=== PATIENT | male | born 1965 | race Caucasian/White ===

== ENCOUNTER 2017-01-06 09:58 | Emergency (ER) | payer OTHER ==
[~2017-01-06] VITALS: Ht 172.7 cm; Wt 103.4 kg
--- NOTE | 2017-01-06 10:15 | NUR ---
PATIENT CAME TO ER S/P GROUND LEVEL FALL AT WORK. C/O HITTING BACK OF HEAD, STATING, "LOSS OF CONSCIOUSNESS A LITTLE BIT." PATIENT STABLE AT THIS TIME.
--- NOTE | 2017-01-06 10:24 | NUR ---
PT TAKEN TO CT.
--- NOTE | 2017-01-06 10:56 | NUR ---
Patient discharged to home in stable condition. Written and verbal after care instructions given. Patient verbalizes understanding of instruction. Pt ambulatory with a steady gait.
[2017-01-06 10:58] VITALS: BP 168/91
== END 2017-01-06 11:07 | disposition home or self-care (01) ==
LOC: ER 10:00
DX: S09.90XA Unspecified injury of head, initial encounter (principal); R51 Headache; I10 Essential (primary) hypertension; W01.198A Fall on same level from slipping, tripping and stumbling with subsequent striking against other object, initial encounter; Y93.89 Activity, other specified; Y92.89 Other specified places as the place of occurrence of the external cause; Y99.9 Unspecified external cause status
CPT/HCPCS: 70450-TC; A4606; Z7610